=== PATIENT | male | born 1975 | race Hispanic/Latino ===

== ENCOUNTER 2018-03-06 12:55 | Emergency (ER) | payer SELFPAY ==
[~2018-03-06] VITALS: Ht 182.9 cm; Wt 79.4 kg
[2018-03-06] MEDS ORDERED: NEOMYCIN/POLYMYX/BACITR OINT 0.9 GM PKT TOP ONE (13:30)
[2018-03-06] MEDS ORDERED: LIDOCAINE HCL 1% LOCAL INJ 20 ML VIAL INJ ONE (13:30)
[2018-03-06] MEDS ORDERED: DIPHTH/TETANUS/ACEL. PERTUSSIS 0.5 ML SYR IM ONE (13:30)
[2018-03-06] MEDS ORDERED: TETANUS/DIPHTHERIA TOX ADULT 0.5 ML SYR ONE (13:58)
[2018-03-06] MEDS ORDERED: CEFAZOLIN SOD 1 GM VIAL IM SCH (14:45)
[2018-03-06] MEDS ORDERED: TETANUS/DIPHTHERIA TOX ADULT 0.5 ML SYR IM ONE (16:00)
--- NOTE | 2018-03-06 17:55 | Diagnostic Imaging Report ---
RIGHT MIDDLE FINGER X-RAY - 3 VIEWS HISTORY: \S\right middle finger laceration \[id number] \[id number] COMPARISON: None available. FINDINGS: Bones: No acute displaced fracture. Osseous alignment is within normal limits. Joints: The joint spaces are well-maintained. Soft tissues: Small soft tissue laceration within the dorsal aspect of the distal interphalangeal joint of the middle finger. IMPRESSION: Soft tissue laceration of the distal right middle finger without underlying bony abnormalities. Signed by: Dr. Robyn Hutson M.D. on 03/06/2018 3:42 PM
== END 2018-03-06 16:02 | disposition home or self-care (01) ==
LOC: ER 12:55
DX: S61.214A Laceration without foreign body of right ring finger without damage to nail, initial encounter (principal); W29.8XXA Contact with other powered hand tools and household machinery, initial encounter; Y92.008 Other place in unspecified non-institutional (private) residence as the place of occurrence of the external cause
CPT/HCPCS: 12002; 73140; 90471; 90714; 99284; J0690